=== PATIENT | male | born 1950 | race Caucasian/White ===

== ENCOUNTER 2018-09-30 10:29 | Emergency (ER) | payer OTHER ==
[~2018-09-30] VITALS: Ht 177.8 cm; Wt 145.1 kg
[2018-09-30 10:34] VITALS: Ht 177.8 cm; Wt 145.1 kg
[2018-09-30 11:22] LABS: BASOPHIL % 0.4 % (0-2); PLATELET COUNT 160 x10^3mcL (130-400); RED CELL DISTRIBUTION WIDTH 14.6 % (11.5-14.5)
[2018-09-30 11:25] LABS: CALCIUM 8.7 mg/dL (8.5-10.1); CARBON DIOXIDE 28.5 mmol/L (21-32); CREATININE SERUM 1.7 mg/dL (0.7-1.3); POTASSIUM SERUM 3.6 mmol/L (3.5-5.1)
[2018-09-30 11:34] LABS: BILIRUBIN TOTAL 0.4 mg/dL (0.20-1.00); MAGNESIUM 2.2 mg/dL (1.8-2.4); TOTAL PROTEIN, SERUM 7.2 g/dL (6.4-8.2)
[2018-09-30 11:35] LABS: ALBUMIN 3.2 g/dL (3.4-5.0)
[2018-09-30 14:43] VITALS: BP 150/96
== END 2018-09-30 14:43 | disposition home or self-care (01) ==
LOC: ED 10:29
PROVIDERS: Emergency Medicine
DX: M54.5 Low back pain (principal); E86.0 Dehydration; R73.9 Hyperglycemia, unspecified; I10 Essential (primary) hypertension; Z85.46 Personal history of malignant neoplasm of prostate
CPT/HCPCS: J1885; J2800; J3490

== ENCOUNTER 2019-06-06 10:04 | Emergency (ER) | payer OTHER ==
[~2019-06-06] VITALS: Ht 177.8 cm; Wt 138.3 kg
[2019-06-06 10:41] VITALS: Ht 177.8 cm; Wt 138.3 kg
[2019-06-06 12:30] VITALS: BP 149/76
== END 2019-06-06 12:30 | disposition home or self-care (01) ==
LOC: ED 10:04
DX: S61.452A Open bite of left hand, initial encounter (principal); I10 Essential (primary) hypertension; W54.0XXA Bitten by dog, initial encounter; Y93.89 Activity, other specified; Y92.89 Other specified places as the place of occurrence of the external cause; Y99.8 Other external cause status

== ENCOUNTER 2019-06-08 12:15 | Emergency (ER) | payer OTHER ==
[~2019-06-08] VITALS: Ht 177.8 cm; Wt 138.8 kg
[2019-06-08 12:18] VITALS: Ht 177.8 cm; Wt 138.8 kg
[2019-06-08 13:20] VITALS: BP 153/81
== END 2019-06-08 13:20 | disposition home or self-care (01) ==
LOC: ED 12:15
DX: S61.452D Open bite of left hand, subsequent encounter (principal); I10 Essential (primary) hypertension; E11.9 Type 2 diabetes mellitus without complications; W54.0XXD Bitten by dog, subsequent encounter

== ENCOUNTER 2019-08-17 12:23 | Emergency (ER) | payer OTHER ==
[~2019-08-17] VITALS: Ht 177.8 cm; Wt 140.6 kg
[2019-08-17 12:24] VITALS: Ht 177.8 cm; Wt 140.6 kg
[2019-08-17 12:58] LABS: BASOPHIL % 0.3 % (0-2); PLATELET COUNT 180 x10^3mcL (130-400)
[2019-08-17 13:13] LABS: CALCIUM 8.7 mg/dL (8.5-10.1); CARBON DIOXIDE 28.6 mmol/L (21-32); CREATININE SERUM 1.6 mg/dL (0.7-1.3); POTASSIUM SERUM 3.8 mmol/L (3.5-5.1)
[2019-08-17 13:18] LABS: ALBUMIN 3.2 g/dL (3.4-5.0); BILIRUBIN TOTAL 0.5 mg/dL (0.20-1.00); TOTAL PROTEIN, SERUM 7.4 g/dL (6.4-8.2)
[2019-08-17 14:30] VITALS: BP 151/98
== END 2019-08-17 14:30 | disposition home or self-care (01) ==
LOC: ED 12:23
PROVIDERS: Emergency Medicine
DX: S76.011A Strain of muscle, fascia and tendon of right hip, initial encounter (principal); X58.XXXA Exposure to other specified factors, initial encounter; Y93.89 Activity, other specified; Y92.89 Other specified places as the place of occurrence of the external cause; Y99.8 Other external cause status
CPT/HCPCS: 36415; Q0092

== ENCOUNTER 2019-08-22 00:01 | Inpatient (IN) | payer OTHER ==
[~2019-08-22] VITALS: Ht 177.8 cm; Wt 140.6 kg
[2019-08-22 00:04] VITALS: Ht 177.8 cm; Wt 140.6 kg
[2019-08-22 01:14] LABS: BASOPHIL % 0.7 % (0-2); PLATELET COUNT 193 x10^3mcL (130-400)
[2019-08-22 01:15] LABS: RED CELL DISTRIBUTION WIDTH 14.6 % (11.5-14.5)
[2019-08-22 01:17] LABS: CALCIUM 8.9 mg/dL (8.5-10.1); CHLORIDE SERUM 105 mmol/L (98-107); CREATININE SERUM 1.6 mg/dL (0.7-1.3); GFR1 46 mL/min; GLUCOSE SERUM 280 mg/dL (74-106); POTASSIUM SERUM 3.8 mmol/L (3.5-5.1); SODIUM SERUM 142 mmol/L (136-145)
[2019-08-22 01:21] LABS: ALBUMIN 3.4 g/dL (3.4-5.0); ALKALINE PHOSPHATASE 94 U/L (46-116); ALT/SGPT 31 U/L (16-63); AST/SGOT 19 U/L (15-37); BILIRUBIN TOTAL 0.35 mg/dL (0.20-1.00); CHOLESTEROL 142 mg/dL (<200); CHOLESTEROL/HDL RATIO 3.3; HDL CHOLESTEROL 43 mg/dL (40-60); TOTAL PROTEIN, SERUM 7.9 g/dL (6.4-8.2)
[2019-08-22 01:22] LABS: TRIGLYCERIDES 446 mg/dL (<150)
[2019-08-22] MEDS ORDERED: LEVOTHYROXINE0.05 M2 PO (02:52)
[2019-08-22] MEDS ORDERED: ATENOLOL50 MG PO (02:54)
[2019-08-22] MEDS ORDERED: CASODEX50 MG PO (02:55)
[2019-08-22] MEDS ORDERED: LIPI10 PO (02:55)
[2019-08-22] MEDS ORDERED: LOSARTAN POTASS1 TA6 PO (02:56)
[2019-08-22] MEDS ORDERED: ALLOPURINOL100 MG PO (02:57)
[2019-08-22] MEDS ORDERED: NOR10 PO (02:57)
[2019-08-22] MEDS ORDERED: JANUVIA100 M1 PO (03:00)
[2019-08-22] MEDS ORDERED: METFORMIN HCL1000 MG PO (03:00)
[2019-08-22 06:15] VITALS: BP 153/93
[2019-08-22 09:15] VITALS: BP 163/108
[2019-08-22] MEDS ORDERED: METOPROLOL TART25 M1 PO (12:35)
[2019-08-22] MEDS ORDERED: ECO81 PO (12:35)
[2019-08-22 12:44] VITALS: BP 145/86
[2019-08-22 14:29] VITALS: BP 145/86
== END 2019-08-22 15:32 | disposition home or self-care (01) | DRG 313 ==
LOC: ED 00:01 → DU 01:39
PROVIDERS: Emergency Medicine; ADMIT Internal Medicine
DX: R07.89 Other chest pain (principal); N17.0 Acute kidney failure with tubular necrosis; Z68.41 Body mass index [BMI] 40.0-44.9, adult; E11.65 Type 2 diabetes mellitus with hyperglycemia; I10 Essential (primary) hypertension; E78.1 Pure hyperglyceridemia; Z79.84 Long term (current) use of oral hypoglycemic drugs
CPT/HCPCS: 82962; 83880; G0378; J2270; J7030; J8999; Q0092

== ENCOUNTER 2019-10-03 00:57 | Emergency (ER) | payer OTHER ==
[~2019-10-03] VITALS: Ht 177.8 cm; Wt 130.2 kg
[~2019-10-03 00:57] MED LIST: ALLOPURINOL100 MG PO; ATENOLOL50 MG PO; CASODEX50 MG PO; ECO81 PO; JANUVIA100 M1 PO; LEVOTHYROXINE0.05 M2 PO; LIPI10 PO; LOSARTAN POTASS1 TA6 PO; METFORMIN HCL1000 MG PO; METOPROLOL TART25 M1 PO; NOR10 PO
[2019-10-03 01:12] VITALS: Ht 177.8 cm; Wt 130.2 kg
[2019-10-03 02:45] VITALS: BP 143/82
== END 2019-10-03 03:45 | disposition home or self-care (01) ==
LOC: ED 00:57
DX: M54.32 Sciatica, left side (principal); M51.36 Other intervertebral disc degeneration, lumbar region; R20.0 Anesthesia of skin; I10 Essential (primary) hypertension; E11.9 Type 2 diabetes mellitus without complications; Z85.46 Personal history of malignant neoplasm of prostate

== ENCOUNTER 2020-09-22 22:28 | Emergency (ER) | payer OTHER ==
[~2020-09-22] VITALS: Ht 177.8 cm; Wt 134.7 kg
[~2020-09-22 22:28] MED LIST changes: +AZOR 5-40 MG T1 EACH PO; +COZAAR25 M1 PO; +FORTAMET1000 MG PO; +JANUVIA25 M1 PO; +TENORMIN25 MG PO; +TIROSINT50 MC1 PO; +XARELTO15 M1 PO; +XARELTO20 M1 PO; +ZYLOPRIM300 MG PO
[2020-09-22 22:38] VITALS: Ht 177.8 cm; Wt 134.7 kg
[2020-09-23 02:18] VITALS: BP 138/74
== END 2020-09-23 02:18 | disposition home or self-care (01) ==
LOC: ED 22:28
DX: M25.511 Pain in right shoulder (principal)
CPT/HCPCS: J1885; Q0092